=== PATIENT | female | born 1965 | race Caucasian/White ===

== ENCOUNTER 2024-06-28 10:40 | Emergency (ER) | payer OTHER, SELFPAY ==
[2024-06-28 10:42] VITALS: BP 126/79; PULSE 71; RESP 18; TEMP 37.2; O2SAT 99; BMI 27.4
[2024-06-28 10:47] VITALS: BP 126/79; PULSE 85; O2SAT 98
--- NOTE | 2024-06-28 11:06 | ED_ITS ---
Discharge Plan Disposition Patient Disposition: Home, Self-Care Condition: Good Prescriptions Prescriptions: New phenazopyridine [Pyridium] 200 mg tablet 200 mg PO Q8H PRN (Reason: pain) 2 Days Qty: 6 0RF nitrofurantoin monohyd/m-cryst 100 mg capsule 100 mg PO BID 5 Days Qty: 10 0RF Rx Instructions: must administer with a meal/food No Action potassium chloride 10 mEq Capsule, Extended Release 10 meq PO DAILY Rx Instructions: pt thinks this is her dosage losartan 25 mg Tablet 25 mg PO DAILY bumetanide [Bumex] 1 mg Tablet 0.5 mg PO DAILY Referrals Follow up/Referrals: Fanta Cesar [Primary Care Provider] - See instructions Activity Restrictions/Add. Instructions Additional Instructions/Restrictions: As discussed you have an uncomplicated urinary tract infection and per local susceptibility patterns nitrofurantoin is first-line. Please follow-up with your primary care doctor if you are not improving in 48 to 72 hours. Return with high fevers or other concerns Clinical Impressions Clinical Impression: Urinary tract infection Instructions Patient Instructions: DI for Urinary Tract Infection (UTI), DI for Urinary Tract Infection in Children Print Language Print Language: Kinyarwanda Discharge ED Provider: Darya Julien General Adult HPI General Chief complaint: Urogenital-Female Stated complaint: lower abd pain, blood in urine Time Seen by Provider: 06/28/24 10:59 Mode of Arrival: Ambulatory Source of Information: Patient Limitations: No Limitations Description of Symptoms (Recalled from ER Triage Doc. by RN): urinary symptoms. started sunday. History of Present Illness HPI narrative: 59-year-old female presents today with what she believes is a urinary tract infection as she has been having burning and frequency with urination for several days. Patient denies any CVA pain from historical standpoint or any fever denies any other significant past medical history. Denies any antibiotic allergies. Related Data Home Medications ?Medication ?Instructions ?Recorded ?Confirmed bumetanide 1 mg tablet 0.5 mg PO DAILY 06/28/24 06/28/24 losartan 25 mg tablet 25 mg PO DAILY 06/28/24 06/28/24 potassium chloride 10 mEq 10 meq PO DAILY 06/28/24 06/28/24 capsule,extended release Previous Rx's ?Medication ?Instructions ?Recorded nitrofurantoin 100 mg PO BID 5 days #10 caps 06/28/24 monohydrate/macrocrystals 100 mg capsule phenazopyridine 200 mg tablet 200 mg PO Q8H PRN pain 2 days #6 06/28/24 (Pyridium) tabs Allergies Allergy/AdvReac Type Severity Reaction Status Date / Time No Known Allergies Allergy Verified 06/28/24 10:52 [facility] Disclaimer: The information contained in this section may have been updated after the patient was seen, as this information can be updated by other users. Social History Smoking Status: Never smoker alcohol intake: never current occupational status: other Travel in the last 8 weeks: None ROS Obtained: Yes All systems reviewed & no additional complaints except as documented Physical Exam General General appearance: alert and in no apparent distress Respiratory Respiratory exam: Present normal lung sounds bilaterally; Absent respiratory distress Cardiovascular Cardiovascular exam: Present regular rate and normal rhythm Abdominal Exam Abdominal exam: Present soft; Absent distention or tenderness Back Exam Back exam: Absent CVA tenderness (R) or CVA tenderness (L) Neurological Exam Neurological exam: Present alert and oriented X3 Medical Decision Making Medical Records Screening: Per USPSTF and CDC recommendations, given the prevalence of disease in our region, it is our hospital?s policy to screen for HIV and viral Hepatitis for all patients aged 18 and over and those with ongoing risk factors. Talha Inquiry Pt receiving controlled substance: No Vital Signs: 06/28/24 10:42 06/28/24 10:47 06/28/24 11:53 Temperature 98.9 F 98.7 F Temperature Source Oral Pulse Rate 85 79 Pulse Rate [Right] 71 Respiratory Rate 18 18 Blood Pressure 126/79 126/79 Blood Pressure [Right Arm] 126/79 Blood Pressure Mean [Right Arm] 94 02 Sat by Pulse Oximetry 99 98 Oxygen Delivery Method Room Air Room Air Lab Data Lab results reviewed: Yes I reviewed the patient's lab results. Lab Results 06/28/24 11:18: Urine Color Yellow, Urine Appearance Clear, Urine pH 7.5, Ur Specific [place] 1.015, Urine Protein Negative, Urine Glucose (UA) Negative, Urine Ketones Negative, Urine Blood 3+ A, Urine Nitrate Negative, Urine Bilirubin Negative, Urine Urobilinogen 0.2, Ur Leukocyte Esterase 2+ A, Urine RBC 5-10, Urine WBC 3-5, Ur Squamous Epith Cells 3-5, Urine Bacteria Trace Orders (Tests/Meds): ORDERS Category Date Time Status UA [Urinalysis and Microscopic] Stat Lab 06/28/24 11:18 Completed Urine Culture Stat Micro 06/28/24 11:18 Received Medical Decision Narrative: Well-appearing 59-year-old female with benign abdominal exam no CVA tenderness or fever systemically well nontoxic in appearance presenting today with what appears to be urinary tract infection. Of note her mother recently had a urinary tract infection was on nitrofurantoin and advised the patient to not take this medication. I will have a risk-benefit discussion with her about empiric therapy if her urinalysis is unremarkable as that is typically my first- line agent given susceptibility patterns in this region. Will reassess shortly. Reassessment at noon patient does have urinary tract infection given the fact that her family member was concerned about nitrofurantoin I brought a local antibiogram into the patient's room and explained to her the susceptibility patterns in our region and the options from a first-line therapy that have significant resistance particular the E. coli. After further discussion she agreed to take nitrofurantoin as a first-line agent. She has been advised to follow-up with primary care doctor. Critical Care Critical Care Time Critical Care Time: No
[2024-06-28 11:33] LABS: Appearance,Urine CLEAR (Clear); Bilirubin,Urine Negative (Negative); Blood, Urine 3+ (Negative); Color,Urine YELLOW (Yellow); Glucose,Urine (UA) Negative (Negative); Ketones,Urine Negative (Negative); Leukocyte Esterase,Urine 2+ (Negative); Microscopic, Urine URINE MICROSCOPIC (MICROSCOPIC); Nitrate,Urine Negative (Negative); PH,Urine 7.5 (5.0-8.5); Protein,Urine Negative (Negative); Specific Gravity, Urine 1.015 (1.005-1.030); Urobilinogen,Urine 0.2 EU/dl (0.2)
[2024-06-28 11:40] LABS: Bacteria,Urine Trace /lpf
[2024-06-28 11:53] VITALS: BP 126/79; PULSE 79; RESP 18; TEMP 37.1; O2SAT 99
--- NOTE | 2024-07-01 17:09 | PC.NURSE ---
UA DISCUSSED WITH DR JOHNS, NEW ABX GIVEN. SENT IN TO PT'S PHARMACY. PT NOTIFIED
== END 2024-06-28 11:55 | disposition home or self-care (01) ==
PROVIDERS: Emergency Provider Student in an Organized Health Care Education/Training Program; PCP Family Medicine
DX: N39.0 Urinary tract infection, site not specified (principal); R10.30 Lower abdominal pain, unspecified; R30.9 Painful micturition, unspecified; R35.0 Frequency of micturition; R31.9 Hematuria, unspecified
CPT/HCPCS: 81001; 87086; 87088; 87186; 99283